=== PATIENT | female | born 1955 | race Caucasian/White ===

== ENCOUNTER → 2016-03-25 | Outpatient (CLI) | payer OTHER ==
--- NOTE | 2016-03-26 06:46 | XR ---
EXAMINATION TYPE: XR knee complete LT DATE OF EXAM: 03/25/2016 4:08 PM CLINICAL HISTORY: Left lateral knee pain after slip and fall injury today. TECHNIQUE: Three views of the left knee are obtained. COMPARISON: None. FINDINGS: There is no acute fracture/dislocation evident in left knee. There is mild to moderate tri compartment joint space loss. No significant spurring is seen. The overlying soft tissue appears unr emarkable. IMPRESSION: There is no acute fracture or dislocation in the left knee.
== END | disposition home or self-care (01) ==
LOC: RADXRMAIN 15:46
PROVIDERS: ATTEND Emergency Medicine
DX: S80.02XS Contusion of left knee, sequela (principal)